=== PATIENT | female | born 1990 | race American Indian/Alaskan Native ===

== ENCOUNTER 2022-03-18 19:06 | Outpatient (CLI) | payer MEDICAID ==
[2022-03-18 21:16] LABS: Bacteria,Urine 1+ /HPF (Negative)
[2022-03-18 21:19] LABS: Color,Urine Yellow (Yellow)
[2022-03-18] MEDS ORDERED: PROMETHAZINE 25 MG TAB PO ONE (22:35)
[2022-03-18 23:19] VITALS: BP 134/83
== END 2022-03-18 22:20 | disposition home or self-care (01) ==
LOC: TRG 19:06 → APU 19:11 → TRG 22:20
PROVIDERS: ATTEND Obstetrics & Gynecology Gynecology
DX: O26.893 Other specified pregnancy related conditions, third trimester (principal); O21.2 Late vomiting of pregnancy; R10.9 Unspecified abdominal pain; O47.03 False labor before 37 completed weeks of gestation, third trimester; Z3A.36 36 weeks gestation of pregnancy
CPT/HCPCS: 59025; 81001; Q0169

== ENCOUNTER 2022-04-10 21:14 | Inpatient (IN) | payer MEDICAID ==
[2022-04-10 21:45] VITALS: BP 137/77
[2022-04-10] MEDS ORDERED: PROMETHAZINE 25 MG TAB PO PRN (21:53)
[2022-04-10] MEDS ORDERED: miSOPROStol 200 MCG TAB PR PRN (21:53)
[2022-04-10] MEDS ORDERED: OXYTOCIN 10 UNIT/1 ML INJ IM PRN (21:53)
[2022-04-10] MEDS ORDERED: miSOPROStol 25 MCG TAB VG ONE (21:53)
[2022-04-10] MEDS ORDERED: TERBUTALINE 1 MG/1 ML INJ SUB-Q PRN (21:53)
[2022-04-10] MEDS ORDERED: METHYLERGONOVINE MALEATE 0.2 MG/ML VIAL IM PRN (21:53)
[2022-04-10] MEDS ORDERED: BUTORPHANOL 2 MG/1 ML INJ IV PRN ×2 (21:53)
[2022-04-10] MEDS ORDERED: ePHEDrine SULFATE 50 MG/1 ML INJ IV PRN (21:53)
[2022-04-10] MEDS ORDERED: LOPERAMIDE 2 MG CAP PO PRN (21:53)
[2022-04-10] MEDS ORDERED: ACETAMINOPHEN 325 MG TAB PO PRN (21:53)
[2022-04-10] MEDS ORDERED: LIDOCAINE (2%) 20 MG/1 ML VIAL 20 ML MDV INFILTRATI ONE (21:53)
[2022-04-10] MEDS ORDERED: NALOXONE 0.4 MG/1 ML INJ IV PRN (21:53)
[2022-04-10] MEDS ORDERED: CARBOPROST TROMETHAMINE 250 MCG/1 ML INJ IM PRN (21:53)
[2022-04-10] MEDS ORDERED: MINERAL OIL 30 ML ORAL LIQD PO PRN (21:53)
[2022-04-10] MEDS ORDERED: LACTATED RINGERS 1,000 ML IV SCH (22:00)
[2022-04-10] MEDS ORDERED: OXYTOCIN DRIP 30 UNITS/500 ML BAG IV SCH ×2 (22:00)
--- NOTE | 2022-04-10 22:43 | History and Physical Report ---
History of Present Illness Date of examination: 04/10/22 Date of admission: 04/10/22 21:14 Chief complaint: POST Date IOL History of present illness: 31 yo , presents to labor and delivery for IOL due to post dates. Her EDC 04/04/22. 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 Her Rubella is non immune, and a history of anemia this . Past History Past Medical History: no pertinent history Past Surgical History: no surgical history Family/Genetic History: none Social history: no significant social history - Obstetrical History Expected Date of Delivery: 04/04/22 Actual Gestation: 40 Week(s) 6 Day(s) : 4 Para: 1 Hx # Term Pregnancies: 1 Number of Pregnancies: 0 Spontaneous Abortions: 1 Induced : 1 Number of Living Children: 1 #1 Infant Gender: Female year: 2[age][birth year] Birthweight: 6 lb 2.08 oz Method of Delivery: Vaginal Gestational age at delivery: 39 Complications: none Medications and Allergies Allergies Allergy/AdvReac Type Severity Reaction Status Date / Time strawberry Allergy Anaphylaxis Verified 03/18/22 20:29 Home Medications Medication Instructions Recorded Confirmed Last Taken Type Aspirin [[place] Aspirin EC] 81 mg PO DAILY 03/18/22 03/18/22 Unknown History Cholecalciferol (Vitamin D3) 50,000 unit PO 1XW 03/18/22 03/18/22 Unknown History [Vitamin D3 50,000UNIT CAP] Ferrous Sulfate [Iron 325 MG] 325 mg PO TID 03/18/22 03/18/22 Unknown History Vit-Fe Fumar-FA [ 1 tab PO QDAY 03/18/22 03/18/22 Unknown History Vitamin] Terconazole 45 gm VG DAILY 03/18/22 03/18/22 Unknown History Valacyclovir HCl [Valacyclovir] 500 mg PO DAILY 03/18/22 03/18/22 Unknown History metroNIDAZOLE [Flagyl] 500 mg PO DAILY 03/18/22 03/18/22 Unknown History Active Meds: Active Medications Acetaminophen (Acetaminophen 325 Mg Tab) 650 mg PO Q4H PRN PRN Reason: Pain, Mild (1-3) Butorphanol Tartrate (Butorphanol 2 Mg/1 Ml Inj) 1 mg IV Q2H PRN PRN Reason: Pain, Moderate(4-6) LABOR PAIN Butorphanol Tartrate (Butorphanol 2 Mg/1 Ml Inj) 2 mg IV Q2H PRN PRN Reason: Pain , Severe (7-10) Carboprost Tromethamine (Carboprost Tromethamine 250 Mcg/1 Ml Inj) 250 mcg IM ONCE PRN PRN Reason: Uterine Bleeding Ephedrine Sulfate (Ephedrine Sulfate 50 Mg/1 Ml Inj) 10 mg IV Q2M PRN PRN Reason: Hypotension Oxytocin/Sodium Chloride (Pitocin/Ns 30 Unit/500ml) 30 units in 500 mls @ 2 mls/hr IV TITR ROLAND; Protocol Lactated Ringer's (Lactated Ringers) 1,000 mls @ 125 mls/hr IV DIRECT ROLAND Oxytocin/Sodium Chloride (Pitocin/Ns 30 Unit/500ml) 30 units in 500 mls @ 40 mls/hr IV TITR ROLAND; Protocol Loperamide HCl (Loperamide 2 Mg Cap) 2 mg PO ONCE PRN PRN Reason: give with Hemabate Methylergonovine Maleate (Methylergonovine Maleate 0.2 Mg/Ml Vial) 0.2 mg IM ONCE PRN PRN Reason: Uterine Bleeding Mineral Oil (Mineral Oil 30 Ml Oral Liqd) 30 ml PO QHS PRN PRN Reason: Constipation Misoprostol (Misoprostol 200 Mcg Tab) 800 mcg [place] ONCE PRN PRN Reason: Uterine Bleeding Naloxone HCl (Naloxone 0.4 Mg/1 Ml Inj) 0.1 mg IV Q2MIN PRN PRN Reason: Res Rate </= 8 or 02 SAT < 92% Oxytocin (Oxytocin 10 Unit/1 Ml Inj) 10 unit IM ONCE PRN PRN Reason: Uterine Bleeding Promethazine HCl (Promethazine 25 Mg Tab) 25 mg PO Q6H PRN PRN Reason: Nausea And Vomiting Terbutaline Sulfate (Terbutaline 1 Mg/1 Ml Inj) 0.25 mg SUB-Q ONCE PRN PRN Reason: Hyperstimulation/Hypertonicity - Vital Signs Vital signs: Vital Signs Pulse Pulse Ox 94 H 99 04/10/22 21:42 04/10/22 21:42 Temp Pulse Resp BP Pulse Ox 98.1 F 81 16 137/77 99 04/10/22 22:04 04/10/22 22:27 04/10/22 22:04 04/10/22 22:04 04/10/22 22:27 - Physical Exam Breasts: Positive: deferred Cardiovascular: Regular rate Lungs: Positive: Clear to auscultation Abdomen: Positive: normal appearance Genitourinary (Female): Positive: normal external genitalia Vulva: both: normal Vagina: Positive: normal moisture Uterus: Positive: enlarged (gravid) Extremities: Positive: normal Deep Tendon Reflex Grade: Normal +2 - Obstetrical FHR: category 1 Uterine Contraction Monitor Mode: External Cervical Dilatation: 1 Cervical Effacement Percentage: 40 station: -3 Uterine Contraction Frequency (min): irregular Uterine Contraction Pattern: Irregular Uterine Contraction Intensity: Mild Results All other labs normal. Assessment and Plan A: HD #1 IOL for post dates GBS neg P: L&D nursing protocol EFM/TOCO Cervidil
[2022-04-10 22:55] LABS: Hematocrit 29.3 % (30.3-42.9); Hemoglobin 9.5 gm/dl (10.1-14.3); Mean Corpuscular HGB Conc 33 % (30-34); Mean Corpuscular Volume 72 fl (79-97); Platelet Count 214 K/mm3 (140-440); Red Blood Count 4.07 M/mm3 (3.65-5.03)
[2022-04-10] MEDS ORDERED: DINOPROSTONE 10 MG VAG SUPP VG ONE (23:35)
--- NOTE | 2022-04-10 23:57 | Event Note ---
Date: 04/10/22 (0144) While in room to place cervidil, Pt decides she does not want to be induced at this time. Per Pt" the specialist said my due date is 04/13/22 and I am not in labor, I don't feel comfortable being induced at this point". After reviewing patient chart with her I informed her our records states her due date is 04/04/22. She states " I still want to wait to go into labor on my own." Informed patient she would sign out AMA, and to call office in the morning for OB appt this week. Pt verbalized understanding. Rn, and charge nurse at bs.
== END 2022-04-11 00:11 | disposition left against medical advice (07) | DRG 781 ==
LOC: LD 21:14
PROVIDERS: ADMIT Obstetrics & Gynecology Gynecology; ATTEND Obstetrics & Gynecology Gynecology
DX: O48.0 Post-term pregnancy (principal); O98.313 Other infections with a predominantly sexual mode of transmission complicating pregnancy, third trimester; Z3A.40 40 weeks gestation of pregnancy; Z53.29 Procedure and treatment not carried out because of patient's decision for other reasons; A60.00 Herpesviral infection of urogenital system, unspecified; Z91.018 Allergy to other foods
CPT/HCPCS: 36415; 85027; 86850; 86900; 86901; G0378

== ENCOUNTER 2022-04-11 17:42 | Inpatient (IN) | payer MEDICAID ==
[2022-04-11] MEDS ORDERED: LOPERAMIDE 2 MG CAP PO PRN (17:59)
[2022-04-11] MEDS ORDERED: MINERAL OIL 30 ML ORAL LIQD PO PRN (17:59)
[2022-04-11] MEDS ORDERED: CARBOPROST TROMETHAMINE 250 MCG/1 ML INJ IM PRN (17:59)
[2022-04-11] MEDS ORDERED: OXYTOCIN 10 UNIT/1 ML INJ IM PRN (17:59)
[2022-04-11] MEDS ORDERED: METHYLERGONOVINE MALEATE 0.2 MG/ML VIAL IM PRN (17:59)
[2022-04-11] MEDS ORDERED: ACETAMINOPHEN 325 MG TAB PO PRN (17:59)
[2022-04-11] MEDS ORDERED: BUTORPHANOL 2 MG/1 ML INJ IV PRN ×2 (17:59)
[2022-04-11] MEDS ORDERED: TERBUTALINE 1 MG/1 ML INJ SUB-Q PRN (17:59)
[2022-04-11] MEDS ORDERED: miSOPROStol 200 MCG TAB PR PRN (17:59)
[2022-04-11] MEDS ORDERED: ePHEDrine SULFATE 50 MG/1 ML INJ IV PRN (17:59)
[2022-04-11] MEDS ORDERED: LIDOCAINE (2%) 20 MG/1 ML VIAL 20 ML MDV INFILTRATI ONE (17:59)
[2022-04-11] MEDS ORDERED: OXYTOCIN DRIP 30 UNITS/500 ML BAG IV SCH (18:00)
--- NOTE | 2022-04-11 18:06 | History and Physical Report ---
History of Present Illness Date of examination: 04/11/22 Date of admission: 04/11/2022 Chief complaint: Here for induction of labor History of present illness: 32 y/o presents to hospital for post dates induction of labor. She was discharged last night but has decided to proceed with induction tonight. GBS Neg Past History Past Medical History: no pertinent history Past Surgical History: no surgical history Family/Genetic History: heart disease Social history: no significant social history - Obstetrical History Expected Date of Delivery: 04/04/22 Actual Gestation: 41 Week(s) 0 Day(s) : 4 Para: 1 Number of Living Children: 1 Medications and Allergies Allergies Allergy/AdvReac Type Severity Reaction Status Date / Time strawberry Allergy Anaphylaxis Verified 03/18/22 20:29 Home Medications Medication Instructions Recorded Confirmed Last Taken Type Aspirin [[place] Aspirin EC] 81 mg PO DAILY 03/18/22 03/18/22 Unknown History Cholecalciferol (Vitamin D3) 50,000 unit PO 1XW 03/18/22 03/18/22 Unknown History [Vitamin D3 50,000UNIT CAP] Ferrous Sulfate [Iron 325 MG] 325 mg PO TID 03/18/22 03/18/22 Unknown History Vit-Fe Fumar-FA [ 1 tab PO QDAY 03/18/22 03/18/22 Unknown History Vitamin] Terconazole 45 gm VG DAILY 03/18/22 03/18/22 Unknown History Valacyclovir HCl [Valacyclovir] 500 mg PO DAILY 03/18/22 03/18/22 Unknown History metroNIDAZOLE [Flagyl] 500 mg PO DAILY 03/18/22 03/18/22 Unknown History Active Meds: Active Medications Acetaminophen (Acetaminophen 325 Mg Tab) 650 mg PO Q4H PRN PRN Reason: Pain, Mild (1-3) Butorphanol Tartrate (Butorphanol 2 Mg/1 Ml Inj) 1 mg IV Q2H PRN PRN Reason: Pain, Moderate(4-6) LABOR PAIN Butorphanol Tartrate (Butorphanol 2 Mg/1 Ml Inj) 2 mg IV Q2H PRN PRN Reason: Pain , Severe (7-10) Carboprost Tromethamine (Carboprost Tromethamine 250 Mcg/1 Ml Inj) 250 mcg IM ONCE PRN PRN Reason: Uterine Bleeding Ephedrine Sulfate (Ephedrine Sulfate 50 Mg/1 Ml Inj) 10 mg IV Q2M PRN PRN Reason: Hypotension Oxytocin/Sodium Chloride (Pitocin/Ns 30 Unit/500ml) 30 units in 500 mls @ 2 m ls/hr IV TITR ROLAND; Protocol Lactated Ringer's (Lactated Ringers) 1,000 mls @ 125 mls/hr IV DIRECT ROLAND Oxytocin/Sodium Chloride (Pitocin/Ns 30 Unit/500ml) 30 units in 500 mls @ 40 mls/hr IV TITR ROLAND; Protocol Lidocaine (Lidocaine (2%) 20 Mg/1 Ml Vial 20 Ml Mdv) 20 ml INFILTRATI ONCE ONE Stop: 04/11/22 18:00 Loperamide HCl (Loperamide 2 Mg Cap) 2 mg PO ONCE PRN PRN Reason: give with Hemabate Methylergonovine Maleate (Methylergonovine Maleate 0.2 Mg/Ml Vial) 0.2 mg IM ONCE PRN PRN Reason: Uterine Bleeding Mineral Oil (Mineral Oil 30 Ml Oral Liqd) 30 ml PO QHS PRN PRN Reason: Constipation Misoprostol (Misoprostol 200 Mcg Tab) 800 mcg [place] ONCE PRN PRN Reason: Uterine Bleeding Oxytocin (Oxytocin 10 Unit/1 Ml Inj) 10 unit IM ONCE PRN PRN Reason: Uterine Bleeding Terbutaline Sulfate (Terbutaline 1 Mg/1 Ml Inj) 0.25 mg SUB-Q ONCE PRN PRN Reason: Hyperstimulation/Hypertonicity - Physical Exam Breasts: Positive: deferred Cardiovascular: Regular rate Lungs: Positive: Clear to auscultation Abdomen: Positive: soft Genitourinary (Female): Positive: normal external genitalia Vulva: both: normal Vagina: Positive: normal moisture Uterus: Positive: enlarged Adnexa: both: normal Extremities: Positive: normal Deep Tendon Reflex Grade: Normal +2 - Obstetrical FHR: category 1 Uterine Contraction Monitor Mode: Palpation Cervical Dilatation: 2 Cervical Effacement Percentage: 40 station: -1 Uterine Contraction Pattern: Irregular Uterine Contraction Intensity: Mild Results All other labs normal. Assessment and Plan A: 41 weeks by U/S- Induction of labor P: Cytotec Epidural as needed
[2022-04-11 19:39] LABS: Hematocrit 30.3 % (30.3-42.9); Hemoglobin 9.7 gm/dl (10.1-14.3); Mean Corpuscular HGB Conc 32 % (30-34); Mean Corpuscular Volume 72 fl (79-97); Platelet Count 225 K/mm3 (140-440); Red Blood Count 4.19 M/mm3 (3.65-5.03); Red Cell Distribution Width 18.5 % (13.2-15.2)
[2022-04-11] MEDS: miSOPROStol 25 MCG TAB PO SCH (20:15)
[2022-04-12] MEDS: miSOPROStol 25 MCG TAB PO SCH (00:07)
[2022-04-12] MEDS ORDERED: BUTORPHANOL 2 MG/1 ML INJ IV PRN ×2 (00:21→01:00)
[2022-04-12] MEDS: LACTATED RINGERS 1,000 ML IV SCH ×4 (02:00→05:55)
--- NOTE | 2022-04-12 02:20 | Ultrasound Report ---
ULTRASOUND OBSTETRIC INDICATION / CLINICAL INFORMATION: Post-due date. - Clinical Gestational Age (GA) in weeks, days: 41 weeks 1 day TECHNIQUE: Transabdominal. COMPARISON: None available. FINDINGS: Single intrauterine . Biparietal Diameter = 10.0 cm = 41, 1 weeks, days Head Circumference = 35.6 cm = 41, 6 weeks, days Abdominal Circumference = 36.8 cm = 40, 5 weeks, days Femur Length = 6.9 cm = 35, 3 weeks, days Average Ultrasound Age (AUA) = 39, 6 weeks, days Heart Rate: 136 beats per minute. Estimated Weight in grams (if calculated): 3928 Estimated Weight Growth Percentile (if calculated): Position: cephalic. Placenta: Fundal and free of the os. Amniotic Fluid Volume: normal Amniotic Fluid Index (HO) in cm (if calculated): 7.5 cm. Maternal Adnexa: No significant abnormality. IMPRESSION: 1. Single, living intrauterine with estimated sonographic age of 39 weeks, 6 days. 2. No significant sonographic abnormality. Signer Name: Manfred Walker MD Signed: 04/12/2022 2:15 AM Workstation Name: [id number]
[2022-04-12] MEDS ORDERED: NALOXONE 0.4 MG/1 ML INJ IV PRN (02:39)
[2022-04-12] MEDS ORDERED: ePHEDrine SULFATE 50 MG/1 ML INJ IV PRN (02:39)
[2022-04-12] MEDS ORDERED: fentaNYL-BUPIV 2 MCG/ML-0.125% 200 MCG/100 ML BAG EPIDURAL SCH (02:39)
--- NOTE | 2022-04-12 02:40 | Anesthesia Consultation ---
Anesthesia Consult and Med Hx Date of service: 04/12/22 - Airway Anesthetic Teeth Evaluation: Good ROM Head & Neck: Adequate Mental/Hyoid Distance: Adequate Mallampati Class: Class II Intubation Access Assessment: Probably Good - Pulmonary Exam CTA: Yes - Cardiac Exam Cardiac Exam: RRR - Pre-Operative Health Status ASA Pre-Surgery Classification: ASA2 Proposed Anesthetic Plan: Epidural - Pulmonary Hx Smoking: No Hx Asthma: No Hx Respiratory Symptoms: No SOB: No COPD: No Home Oxygen Therapy: No Hx Pneumonia: No Hx Sleep Apnea: No - Cardiovascular System Hx Hypertension: No Hx Coronary Artery Disease: No Hx Heart Attack/AMI: No Hx Angina: No Hx Percutaneous Transluminal Coronary Angioplasty (PTCA): No Hx Cardia Arrhythmia: No Hx Pacemaker: No Hx Internal Defibrillator: No Hx Valvular Heart Disease: No Hx Heart Murmur: No Hx Peripheral Vascular Disease: No - Central Nervous System Hx Neuromuscular Disorder: No Hx Seizures: No CVA: No Hx Back Pain: No Hx Psychiatric Problems: No - Gastrointestinal Hx Ulcer: No Hx Gastroesophageal Reflux Disease: No - Endocrine Hx Renal Disease: No Hx End Stage Renal Disease: No Hx Cirrhosis: No Hx Liver Disease: No Hx Insulin Dependent Diabetes: No Hx Non-Insulin Dependent Diabetes: No Hx Thyroid Disease: No Hx Hypothyroidism: No Hx Hyperthyroidism: No - Hematic Hx Anemia: Yes Hx Sickle Cell Disease: No - Other Systems Hx Alcohol Use: Yes Hx Substance Use: No Hx Cancer: No Hx Obesity: No
--- NOTE | 2022-04-12 02:41 | Progress Note ---
Labor Epidural - Labor Epidural Start Time: 02:12 Stop Time: 02:19 Performed by:: DAVION QUIROGA Procedure: Epidural Requested for Labor Pain. H&P and PT Chart reviewed and consent obtained. Time out performed and the procedure was explained, all questions answered. Patient was placed in a sitting position with monitors applied. The PTs back was prepped and draped in usual sterile fashion. The Skin was localized with 3 mL of 1% lidocaine at L3-L4. A 17-gauge Touhy epidural needle was advanced to JEROME with saline at 7 cm and no blood/CSF was noted via epidural needle. Epidural catheter was advanced to 12 cm. There was negative aspiration for blood and CSF in the catheter and negative response to a test dose of 3 ml 1.5% lidocaine w/ Epi and a sterile dressing was applied Patient tolerated the procedure well and there were no immediate complications noted.
--- NOTE | 2022-04-12 02:41 | Anesthesia Day of Surgery ---
Anesthesia Day of Surgery - Day of Surgery Patient Examined: Yes Patient H&P Reviewed: Yes Patient is NPO: Yes Beta Blockers: No Cardiac Clearance: No Pulmonary Clearance: No Ghassan's Test: N/A
[2022-04-12] MEDS ORDERED: SODIUM CHLORIDE 0.9% 1000 ML 1,000 ML VG SCH ×2 (06:00)
[2022-04-12] MEDS ORDERED: LIDOCAINE MPF (2%) 20 MG/1 ML VIAL 5 ML ONE (07:32)
[2022-04-12] MEDS ORDERED: ONDANSETRON 4 MG/2 ML INJ ONE (07:32)
[2022-04-12] MEDS ORDERED: BUPIVACAINE/PF (0.5%) 5 MG/1 ML 30 ML VIAL INFILTRATI ONE (07:32)
[2022-04-12] MEDS ORDERED: MINERAL OIL 30 ML ORAL LIQD ONE (08:21)
[2022-04-12] MEDS: OXYTOCIN DRIP 30 UNITS/500 ML BAG IV SCH ×2 (08:55→09:39)
--- NOTE | 2022-04-12 09:25 | Procedure Note ---
OB Delivery Note - Delivery Date of Delivery: 04/12/22 (0855) Surgeon: BOBO LAOZ Estimated blood loss: 200cc - Vaginal Delivery presentation: vertex Delivery position: OA Intrapartum events: postterm- > or = 42 weeks, mult. late decelerations, mult.variable deceleratio Delivery induction: misoprostol Delivery augmentation: rupture of membranes Delivery monitor: internal FHT, internal uterine Route of delivery: Delivery placenta: spontaneous Delivery cord: 3 umbilical vessels Episiotomy: none Delivery laceration: 1st degree Delivery repair: vicryl Anesthesia: epidural Delivery comments: of a live 9'3 male over a 1st degree vaginal laceration under epidural anesthesia with Apgars of 8 and 9 at 0855 on 04/12/2022. directly to maternal abd/chest, skin to skin contact. Spontaneous delivery of placenta complete and intact with Rooney side presenting at 0858. Fundus is firm and midline located 4 below the U. Lochia is scant. 1st degree vaginal laceration repaired with 2-0 Vicryl on a SH. Delayed cord clamping and cutting; cord cut by the Father of the Baby. Placenta discarded. - Infant A at 1 minute: 8 at 5 minutes: 9 Infant Gender: Male (9'3)
--- NOTE | 2022-04-12 12:05 | Consultation ---
History of Present Illness - Reason for Consult Consult date: 04/12/22 Reason for consult: depression - History of Present Psychiatric Illness The patient was seen today via telepsych. She was admitted for induction of labor. The patient is pleasant and cooperative. She says this is her second child and she feels good about being a mom. The patient says she was very e motional after she delivered the baby and she doesn't know why. She says "now, I'm fine. I just don't know why I was so emotional." She denies any psych history, being on any psych meds or ever seeing a psychiatrist or a therapist. She denies any past attempt of suicide or having any thoughts in the past. She denies SI/HI or hallucinations of any kind. The patient says she lives with her kids father and she has a great support system. She denies any illicit drug use, alcohol or nicotine. I discussed with the patient the benefit of therapy for emotional support and an outlet to prevent feelings of stress and overwhelm. PAST PSYCHIATRIC HISTORY: Diagnoses: Denies Suicide attempts or Self-harm behavior: Denies Prior psychiatric hospitalizations: Denies Substance Abuse history: Denies Previous psychiatric medications tried: Denies Outpatient treatment: Denies PAST MEDICAL HISTORY: None reported or document Family Psychiatric History: None reported or documented SOCIAL HISTORY Marital Status: Single Living Arrangements: with children's father Employment Status: Employed Access to guns/weapons: Denies Education: Bachelor's History of Abuse: Denies Legal History: Denies REVIEW OF SYSTEMS Constitutional: Negative for weight loss ENT: Negative for stridor Respiratory: Negative for cough or hemoptysis All other systems reviewed and are negative MENTAL STATUS EXAMINATION General Appearance and Behavior: Age appropriate, good hygiene, wearing appropriate clothes. calm, cooperative Cooperation: Cooperative Psychomotor Behavior: Psychomotor normal Mood: fine Affect and affective range: Thought Process: goal directed Thought Content: optimistic Speech: normal tone and pace Suicidal Ideation: Denies Homicidal Ideation: Denies Hallucinations: Denies Delusions: None elicited Impulse Control: Normal Insight and Judgment: Normal Memory: Normal Attention: Attentive Orientation: a/o x 3 Assessment (1) Encounter for Mental Health Eval Treatment Plan No scripts given at this time. The patient to comply with previously prescribed medications Risks, benefits and alternatives of medications discussed with the patient, questions answered and consent obtained from patient. PSYCHOTHERAPY: Supportive psychotherapy provided MEDICAL: Per primary team DELIRIUM PRECAUTIONS: Please re-orient patient frequently, keep lights on during the day, and minimize benzodiazepines and opiates as these medications could worsen patient's confusion. PIG FARMER: Defer to primary DISPOSITION: Do not recommend acute psychiatric inpatient treatment. The tax assessor to give the patient resources for therapy FOLLOW-UP: Will sign off Case staffed with Dr. Zayas Medications and Allergies Allergies Allergy/AdvReac Type Severity Reaction Status Date / Time strawberry Allergy Anaphylaxis Verified 04/11/22 19:41 Home Medications Medication Instructions Recorded Confirmed Last Taken Type Aspirin [[place] Aspirin EC] 81 mg PO DAILY 03/18/22 03/18/22 Unknown History Cholecalciferol (Vitamin D3) 50,000 unit PO 1XW 03/18/22 03/18/22 Unknown History [Vitamin D3 50,000UNIT CAP] Ferrous Sulfate [Iron 325 MG] 325 mg PO TID 03/18/22 03/18/22 Unknown History Vit-Fe Fumar-FA [ 1 tab PO QDAY 03/18/22 03/18/22 Unknown History Vitamin] Terconazole 45 gm VG DAILY 03/18/22 03/18/22 Unknown History Valacyclovir HCl [Valacyclovir] 500 mg PO DAILY 03/18/22 03/18/22 Unknown History metroNIDAZOLE [Flagyl] 500 mg PO DAILY 03/18/22 03/18/22 Unknown History Active Meds: Active Medications Carboprost Tromethamine (Carboprost Tromethamine 250 Mcg/1 Ml Inj) 250 mcg IM ONCE PRN PRN Reason: Uterine Bleeding Ephedrine Sulfate (Ephedrine Sulfate 50 Mg/1 Ml Inj) 10 mg IV Q2M PRN PRN Reason: Hypotension Lactated Ringer's (Lactated Ringers) 1,000 mls @ 125 mls/hr IV DIRECT ROLAND Last Admin: 04/12/22 05:55 Dose: 999 mls/hr Oxytocin/Sodium Chloride (Pitocin/Ns 30 Unit/500ml) 30 units in 500 mls @ 40 mls/hr IV TITR ROLAND; Protocol Last Admin: 04/12/22 09:39 Dose: 40 ml/hr, 40 mls/hr Fentanyl/Bupivacaine/Sodium Chlor (Fentanyl-Bupiv 2 Mcg/Ml-0.125%) 200 mcg in 100 mls @ 12 mls/hr EPIDURAL TITR ROLAND; Protocol Last Admin: 04/12/22 04:06 Dose: 12 mls/hr Sodium Chloride (Nacl 0.9% 1000 Ml) 1,000 mls @ 0 mls/hr VG DIRECT ROLAND Sodium Chloride (Nacl 0.9% 1000 Ml) 1,000 mls @ 80 mls/hr VG DIRECT ROLAND Last Infusion: 04/12/22 06:53 Dose: 80 mls/hr Naloxone HCl (Naloxone 0.4 Mg/1 Ml Inj) 0.2 mg IV Q5MIN PRN PRN Reason: Respiratory sedation Terbutaline Sulfate (Terbutaline 1 Mg/1 Ml Inj) 0.25 mg SUB-Q ONCE PRN PRN Reason: Hyperstimulation/Hypertonicity Mental Status Exam - Vital signs Last Vital Signs Temp 99.4 F 04/12/22 11:29 Pulse 102 H 04/12/22 11:48 Resp 16 04/12/22 11:29 BP 134/75 04/12/22 11:47 Pulse Ox 99 04/12/22 11:48 Results Result Diagrams: 04/11/22 18:40 Abnormal lab results 04/11/22 Range/Units 18:40 Hgb 9.7 L (10.1-14.3) gm/dl MCV 72 L (79-97) fl MCH 23 L (28-32) pg RDW 18.5 H (13.2-15.2) % All other labs normal.
[2022-04-13] MEDS ORDERED: WITCH HAZEL/ GLYCERIN PAD TP PRN (00:12)
[2022-04-13] MEDS ORDERED: LANOLIN/ZINC/DIMETHICONE (LANSINOH) 7 GM TP PRN (00:12)
[2022-04-13] MEDS ORDERED: MAGNESIUM HYDROXIDE (MOM) ORAL LIQD UDC PO PRN (00:12)
[2022-04-13] MEDS ORDERED: ACETAMINOPHEN 325 MG TAB PO PRN (00:12)
[2022-04-13] MEDS ORDERED: BENZOCAINE/MENTHOL 20/0.5% TOP SPRAY 56 GM TP PRN (00:12)
[2022-04-13] MEDS: HYDROcodone/ACETAMINOPHEN 5-325 MG TAB PO PRN ×2 (00:21→05:56)
[2022-04-13] MEDS: IBUPROFEN 800 MG TAB PO SCH ×3 (03:03→19:05)
--- NOTE | 2022-04-13 05:59 | Post Anesthesia Evaluation ---
- Post Anesthesia Evaluation Patient Participated: No Airway Patent: Yes Stable Respiratory Function: Yes Nausea/Vomiting: No Temp > 96.8F: Yes Pain Manageable: Yes Adequeate Hydration: Yes Anesthesia Complications: No Block Receding Appropriately: Yes Patient on Ventilator: No
[2022-04-13] MEDS: PRENATAL VIT27-FE FUMARATE-FOLIC ACID VIT TAB PO SCH (09:58)
[2022-04-13] MEDS: DOCUSATE SODIUM 100 MG CAP PO SCH (09:58)
[2022-04-13] MEDS: IRON DEXTRAN COMPLEX 100 MG/2 ML INJ IM SCH ×2 (10:57→12:25)
[2022-04-13 11:50] LABS: Hematocrit 27.4 % (30.3-42.9); Hemoglobin 8.7 gm/dl (10.1-14.3); Mean Corpuscular HGB Conc 32 % (30-34); Mean Corpuscular Volume 73 fl (79-97); Platelet Count 203 K/mm3 (140-440); Red Blood Count 3.74 M/mm3 (3.65-5.03); Red Cell Distribution Width 18.7 % (13.2-15.2)
--- NOTE | 2022-04-13 13:28 | Progress Note ---
Assessment and Plan A: PP Day #1 Asymptomatic Anemia P: Follow Routine Orders Infed 100mg IM x 1 dose Continue feSO4 325mg PO BID at home D/C home today per patient request RTO in 6 Weeks Subjective - Subjective Date of service: 04/13/22 Patient reports: appetite normal, voiding normally, pain well controlled, flatus, ambulating normally : in NICU, bottle feeding (and ) Objective - Vital Signs Latest vital signs: Vital Signs Temp Pulse Resp BP BP Pulse Ox Pulse Ox 04/13/22 07:58 97.6 F 62 18 108/48 98 04/12/22 23:59 98.2 F 76 18 129/71 97 04/12/22 21:23 98 04/12/22 21:12 98.1 F 74 16 127/70 97 04/12/22 18:02 98 04/12/22 16:45 98.5 F 87 20 111/65 98 04/12/22 16:10 98 Intake and Output 04/12/22 04/13/22 04/13/22 22:59 06:59 14:59 Intake Total 960 600 Output Total 600 Balance 360 600 Intake: Oral 360 Intake, Free Water 600 600 Output: Urine 600 Void 600 Other: Total, Intake Amount 360 Total, Output Amount 600 # Voids Void 2 6 - Exam Breasts: Present: normal Cardiovascular: Present: Regular rate Lungs: Present: Clear to auscultation, Normal air movement Abdomen: Present: normal appearance, soft, normal bowel sounds Uterus: Present: normal, firm, fundal height below umbilicus Extremities: Present: normal - Labs Labs: Abnormal lab results 04/13/22 Range/Units 11:04 WBC 17.7 H (4.5-11.0) K/mm3 Hgb 8.7 L (10.1-14.3) gm/dl Hct 27.4 L (30.3-42.9) % MCV 73 L (79-97) fl MCH 23 L (28-32) pg RDW 18.7 H (13.2-15.2) %
--- NOTE | 2022-04-13 13:30 | Discharge Summary ---
Providers - Providers Date of Admission: 04/11/22 17:59 Date of discharge: 04/13/22 Attending physician: MAHI CHE MD Primary care physician: MAHI CHE MD Hospitalization Reason for admission: induction of labor Delivery: Episiotomy: none Laceration: 1st degree Other procedures: none complications: none Discharge diagnosis: IUP at term delivered [place] baby: male Condition at discharge: Good Disposition: 01 HOME / SELF CARE / HOMELESS Plan - Provider Discharge Summary Activity: routine, no sex for 6 weeks, no heavy lifting 4 weeks, no strenuous exercise Diet: routine Instructions: routine Additional instructions: [] Smoking cessation referral if applicable(refer to patient education folder for contact #) [] Refer to [facility]'s [facility] Booklet Call your doctor immediately for: * Fever > 100.5 * Heavy vaginal bleeding ( >1 pad per hour) * Severe persistent headache * Shortness of breath * Reddened, hot, painful area to leg or breast * Drainage or odor from incision. * Keep incision clean and dry at all times and follow doctor's instructions regarding bathing/showering - Follow up plan Follow up: MAHI CHE MD [Primary Care Provider] - 6 Weeks
[2022-04-14] MEDS: IBUPROFEN 800 MG TAB PO SCH ×2 (01:00→09:59)
[2022-04-14] MEDS: DOCUSATE SODIUM 100 MG CAP PO SCH ×2 (01:30→09:59)
[2022-04-14] MEDS: HYDROcodone/ACETAMINOPHEN 5-325 MG TAB PO PRN (01:46)
[2022-04-14] MEDS: PRENATAL VIT27-FE FUMARATE-FOLIC ACID VIT TAB PO SCH (09:59)
[2022-04-14 12:45] VITALS: BP 129/74
== END 2022-04-14 12:00 | disposition home or self-care (01) | DRG 775 ==
LOC: TRG 17:42 → APU 17:44 → LD 17:59 → TRG 18:14 → OB 04-12 13:12
PROVIDERS: ADMIT Obstetrics & Gynecology Gynecology; ATTEND Obstetrics & Gynecology Gynecology
PROC: 10E0XZZ Delivery of Products of Conception, External Approach (ICD-10-PCS; principal; 2022-04-12)
PROC: 0HQ9XZZ Repair Perineum Skin, External Approach (ICD-10-PCS; 2022-04-12)
PROC: 10907ZC Drainage of Amniotic Fluid, Therapeutic from Products of Conception, Via Natural or Artificial Opening (ICD-10-PCS; 2022-04-12)
PROC: 3E0DXGC Introduction of Other Therapeutic Substance into Mouth and Pharynx, External Approach (ICD-10-PCS; 2022-04-12)
PROC: 3E0S3BZ Introduction of Anesthetic Agent into Epidural Space, Percutaneous Approach (ICD-10-PCS; 2022-04-12)
PROC: 00HU33Z Insertion of Infusion Device into Spinal Canal, Percutaneous Approach (ICD-10-PCS; 2022-04-12)
DX: O76 Abnormality in fetal heart rate and rhythm complicating labor and delivery (principal); O48.0 Post-term pregnancy; O70.0 First degree perineal laceration during delivery; Z37.0 Single live birth; Z3A.41 41 weeks gestation of pregnancy; Z20.822 Contact with and (suspected) exposure to COVID-19; O99.02 Anemia complicating childbirth
CPT/HCPCS: 36415; 76816; 85027; 86850; 86900; 86901; G0378; J3490; J7121; J0595; J1750; J2405; J2590; J7030; J7120; U0003